=== PATIENT | male | born 1945 | race Caucasian/White ===

== ENCOUNTER 2018-06-13 02:17 | Emergency (ER) | payer MEDICARE, OTHER ==
[~2018-06-13] VITALS: Ht 175.3 cm; Wt 77.1 kg
[2018-06-13] MEDS ORDERED: TAMSULOSIN HCL0.4 MG PO (05:39)
[2018-06-13] MEDS ORDERED: ATORVASTATIN CA10 MG PO (05:39)
[2018-06-13] MEDS ORDERED: LEVOTHYROXINE50 MCG PO (05:40)
[2018-06-13] MEDS ORDERED: CITALOPRAM HBR20 MG PO (05:40)
[2018-06-13] MEDS ORDERED: DONEPEZIL HCL10 MG PO (05:40)
[2018-06-13] MEDS ORDERED: CITALOPRAM HBR40 MG PO (05:40)
[2018-06-13] MEDS ORDERED: KEFLEX500 MG PO (05:40)
[2018-06-13] MEDS ORDERED: NITROFURANTOIN100 M1 PO (05:40)
== END 2018-06-13 05:38 | disposition home or self-care (01) ==
LOC: ED 02:17
DX: K59.00 Constipation, unspecified (principal); Z87.891 Personal history of nicotine dependence; Z88.0 Allergy status to penicillin; Z88.1 Allergy status to other antibiotic agents; Z91.011 Allergy to milk products
CPT/HCPCS: 74018; 99283

== ENCOUNTER 2019-01-06 13:16 | Emergency (ER) | payer MEDICARE, OTHER ==
[~2019-01-06] VITALS: Ht 175.3 cm; Wt 66.7 kg
[~2019-01-06 13:16] MED LIST: ATORVASTATIN CA10 MG PO; CITALOPRAM HBR20 MG PO; CITALOPRAM HBR40 MG PO; DONEPEZIL HCL10 MG PO; KEFLEX500 MG PO; LEVOTHYROXINE50 MCG PO; NITROFURANTOIN100 M1 PO; TAMSULOSIN HCL0.4 MG PO
[2019-01-06] MEDS ORDERED: QUETIAPINE FUMA50 MG PO (13:40)
[2019-01-06] MEDS ORDERED: SEROQUEL50 MG PO (16:58)
== END 2019-01-06 17:35 | disposition home or self-care (01) ==
LOC: ED 13:16
PROC: 4A0D7LZ Measurement of Urinary Volume, Via Natural or Artificial Opening (ICD-10-PCS; principal; 2019-01-06)
DX: F03.91 Unspecified dementia, unspecified severity, with behavioral disturbance (principal); Z88.0 Allergy status to penicillin; Z88.1 Allergy status to other antibiotic agents; Z91.018 Allergy to other foods
CPT/HCPCS: 51798; 80053; 81001; 85025; 96372; 99284-25